=== PATIENT | female | born 2000 | race Caucasian/White ===

== ENCOUNTER 2019-06-04 14:08 | Emergency (ER) | payer MEDICAID, OTHER ==
[~2019-06-04] VITALS: Ht 172.7 cm; Wt 122.5 kg
[2019-06-04 14:20] VITALS: BP 132/76
== END 2019-06-04 20:07 | disposition left against medical advice (07) ==
LOC: ER 14:08
DX: I10 Essential (primary) hypertension (principal); Z53.21 Procedure and treatment not carried out due to patient leaving prior to being seen by health care provider